=== PATIENT | female | born 1950 | race Caucasian/White ===

== ENCOUNTER 2020-08-10 06:31 | Inpatient (IN) ==
[2020-08-07 11:52] LABS: Basophils # 0.1 10*3/uL (0.0-0.2); Basophils % 0.9 % (0.0-0.8); Eosinophils # 0.2 10*3/uL (0.0-0.87); Eosinophils % 3.4 % (0.00-10.9); Hematocrit 41.7 VOL% (35.7-47.0); Hemoglobin 13.6 GM/DL (12.0-16.0); Immature Granulocytes % 0.4 %; Immature Granulocytes Absolute 0.02 #; Lymphocytes % 53.2 % (21.3-54.2); Mean Corpuscular HGB Conc 32.6 GM/DL (32-36); Mean Corpuscular Volume 90.8 FL (87-102); Mean Platelet Volume 10.3 FL (9.6-12.0); Monocytes % 10.2 % (1.7-12.7); Neutrophils % 31.9 % (38.7-73.9); Platelet Count 311 T/CUMM (130-400); Red Blood Count 4.59 MC/CUMM (3.8-5.5); Red Cell Distribution Width 12.8 % (9.3-17.3); White Blood Count 5.7 T/CUMM (4-12)
[2020-08-07 12:14] LABS: Atypical Lymphocytes Few; Eosinophils 4 % (0-10); Hypochromasia 1+; Lymphocytes 48 % (20-55); Platelet Estimate Adequate; Segmented Neutrophils 36 % (50-85); Total Cells Counted 100
[2020-08-07 12:34] LABS: Bilirubin,Total 0.5 MG/DL (0.2-1.0); Calcium 9.2 MG/DL (8.5-10.1); Osmolality,Calculated 277.4 MOS/KG (273-304); Total Protein 7.4 G/DL (6.4-8.3)
[~2020-08-10 06:31] MED LIST: cefOXitin 1,000 MG in SYRINGE 1 EACH IV ONE
[2020-08-10] MEDS ORDERED: DIAZEPAM 5 MG TABLET PO ONE (06:51)
[2020-08-10] MEDS ORDERED: FAMOTIDINE 20 MG TABLET PO ONE (06:51)
[2020-08-10] MEDS ORDERED: LACTATED RINGERS 1,000 ML IV SCH (08:00)
[2020-08-10] MEDS ORDERED: TISSUE ADHESIVE 1 EACH APPLICATOR TOP ONE (09:52)
[2020-08-10] MEDS ORDERED: BUPIVACAINE MPF 0.25% 30 ML VIAL ONE (09:52)
[2020-08-10] MEDS ORDERED: LIDOCAINE 1%/EPI INJ 20 ML VIAL ONE (09:52)
[2020-08-10] MEDS ORDERED: ACETAMINOPHEN 1,000 MG/100 ML VIAL IV ONE ×2 (10:29→13:04)
[2020-08-10] MEDS ORDERED: INDOCYANINE GREEN 25 MG VIAL IV ONE (11:21)
[2020-08-10] MEDS ORDERED: LIDOCAINE 2% 5 ML VIAL ONE (13:03)
[2020-08-10] MEDS ORDERED: fentaNYL 100 MCG/2 ML VIAL ONE (13:03)
[2020-08-10] MEDS ORDERED: propofoL 200 MG/20 ML VIAL IV ONE (13:03)
[2020-08-10] MEDS ORDERED: MIDAZOLAM 2 MG/2 ML VIAL ONE (13:03)
[2020-08-10] MEDS ORDERED: SEVOFLURANE 1 UNIT/15 MINUTE INH ONE (13:03)
[2020-08-10] MEDS ORDERED: ROCURONIUM 100 MG/10 ML VIAL IV ONE (13:04)
[2020-08-10] MEDS ORDERED: PHENYLEPHRINE 1 MG/10 ML SYRINGE IV ONE (13:04)
[2020-08-10] MEDS ORDERED: ONDANSETRON 4 MG/2 ML VIAL ONE (13:04)
[2020-08-10] MEDS ORDERED: LACTATED RINGERS 1,000 ML IV ONE (13:04)
[2020-08-10] MEDS ORDERED: HYDROmorphone 2 MG/1 ML VIAL ONE (13:29)
[2020-08-10] MEDS ORDERED: ONDANSETRON 4 MG/2 ML VIAL IV PRN (13:30)
[2020-08-10] MEDS: HYDROmorphone 2 MG/1 ML VIAL IV PRN ×4 (13:34→13:50)
[2020-08-10 13:49] LABS: Bacteria,Urine Occasional /HPF (Few); Bilirubin,Urine Negative (Negative); Blood, Urine Negative (Negative); Glucose,Urine (UA) Negative (Negative); Hyaline Casts,Urine 4 /LPF (0-3); Ketones,Urine 20 mg/dL (Negative); Mucus,Urine Few /LPF (Occasional); Nitrite,Urine Negative (Negative); Protein,Urine Negative; RBC,Urine 1 /HPF (0-4); Squamous Epithelial Cell,Urine Occasional /HPF (0-10); Urine Appearance CLEAR (Clear); Urine Color Yellow (Yellow); Urine Specific Gravity 1.012 (1.001-1.035); Urine Urobilinogen < 2.0 EU/DL (0.2-1.0); WBC,Urine 2 /HPF (0-6)
[2020-08-10] MEDS: DEXTROSE 5% LACTATED RINGERS 1,000 ML IV SCH (17:17)
[2020-08-10] MEDS: cefOXitin 2,000 MG in SYRINGE 1 EACH IV SCH (17:56)
[2020-08-11] MEDS: ONDANSETRON 4 MG/2 ML VIAL IV PRN ×5 (00:15→23:47)
[2020-08-11] MEDS: MORPHINE 4 MG/1 ML VIAL IV PRN ×4 (00:20→14:15)
[2020-08-11] MEDS: DEXTROSE 5% LACTATED RINGERS 1,000 ML IV SCH ×4 (00:43→23:45)
[2020-08-11] MEDS: cefOXitin 2,000 MG in SYRINGE 1 EACH IV SCH ×2 (00:43→06:28)
[2020-08-11 06:25] LABS: Basophils % 0.1 % (0.0-0.8); Hematocrit 35.9 VOL% (35.7-47.0); Hemoglobin 11.8 GM/DL (12.0-16.0); Immature Granulocytes % 0.5 %; Immature Granulocytes Absolute 0.07 #; Lymphocytes # 1.6 10*3/uL (1.4-4.0); Lymphocytes % 10.9 % (21.3-54.2); Mean Corpuscular HGB Conc 32.9 GM/DL (32-36); Mean Corpuscular Volume 91.6 FL (87-102); Mean Platelet Volume 9.8 FL (9.6-12.0); Monocytes % 6.9 % (1.7-12.7); Neutrophils % 81.6 % (38.7-73.9); Platelet Count 264 T/CUMM (130-400); Red Blood Count 3.92 MC/CUMM (3.8-5.5); Red Cell Distribution Width 12.7 % (9.3-17.3); White Blood Count 14.4 T/CUMM (4-12)
[2020-08-11 06:39] LABS: Calcium 8.7 MG/DL (8.5-10.1)
[2020-08-11] MEDS: PANTOPRAZOLE 40 MG TABLET PO SCH (10:01)
[2020-08-12] MEDS: MORPHINE 4 MG/1 ML VIAL IV PRN ×4 (01:35→19:33)
[2020-08-12] MEDS: ONDANSETRON 4 MG/2 ML VIAL IV PRN ×4 (06:28→20:25)
[2020-08-12] MEDS: PANTOPRAZOLE 40 MG TABLET PO SCH (09:00)
[2020-08-12] MEDS: DEXTROSE 5% LACTATED RINGERS 1,000 ML IV SCH ×2 (13:19→22:20)
[2020-08-12 16:18] LABS: Basophils % 0.2 % (0.0-0.8); Eosinophils % 0.3 % (0.00-10.9); Hemoglobin 13.1 GM/DL (12.0-16.0); Immature Granulocytes % 0.2 %; Immature Granulocytes Absolute 0.02 #; Lymphocytes # 2.1 10*3/uL (1.4-4.0); Mean Corpuscular Volume 93.6 FL (87-102); Mean Platelet Volume 9.6 FL (9.6-12.0); Monocytes % 6.8 % (1.7-12.7); Neutrophils % 72.5 % (38.7-73.9); Platelet Count 319 T/CUMM (130-400); Red Blood Count 4.38 MC/CUMM (3.8-5.5); Red Cell Distribution Width 13.1 % (9.3-17.3); White Blood Count 10.4 T/CUMM (4-12)
[2020-08-12 16:36] LABS: Osmolality,Calculated 268.2 MOS/KG (273-304)
[2020-08-13 00:14] LABS: Bilirubin,Urine Negative (Negative); Blood, Urine Negative (Negative); Glucose,Urine (UA) 150 mg/dL (Negative); Ketones,Urine Negative (Negative); Mucus,Urine Occasional /LPF (Occasional); Nitrite,Urine Negative (Negative); Protein,Urine 30 MG/DL; RBC,Urine 2 /HPF (0-4); Squamous Epithelial Cell,Urine Occasional /HPF (0-10); Urine Appearance CLEAR (Clear); Urine Color Yellow (Yellow); Urine Specific Gravity 1.015 (1.001-1.035); WBC,Urine 1 /HPF (0-6)
[2020-08-13] MEDS: ONDANSETRON 4 MG/2 ML VIAL IV PRN ×5 (00:34→20:59)
[2020-08-13] MEDS: MORPHINE 4 MG/1 ML VIAL IV PRN ×4 (00:39→21:00)
[2020-08-13 05:27] LABS: Basophils % 0.2 % (0.0-0.8); Eosinophils # 0.1 10*3/uL (0.0-0.87); Eosinophils % 1.7 % (0.00-10.9); Hematocrit 36.5 VOL% (35.7-47.0); Hemoglobin 11.7 GM/DL (12.0-16.0); Immature Granulocytes % 0.2 %; Immature Granulocytes Absolute 0.02 #; Lymphocytes # 2.4 10*3/uL (1.4-4.0); Lymphocytes % 29.6 % (21.3-54.2); Mean Corpuscular HGB Conc 32.1 GM/DL (32-36); Mean Corpuscular Volume 92.2 FL (87-102); Monocytes % 10.1 % (1.7-12.7); Neutrophils % 58.2 % (38.7-73.9); Platelet Count 290 T/CUMM (130-400); Red Blood Count 3.96 MC/CUMM (3.8-5.5); White Blood Count 8.2 T/CUMM (4-12)
[2020-08-13] MEDS: DEXTROSE 5% LACTATED RINGERS 1,000 ML IV SCH ×5 (05:54→22:24)
[2020-08-13 06:04] LABS: Calcium 8.7 MG/DL (8.5-10.1)
[2020-08-13] MEDS: PANTOPRAZOLE 40 MG TABLET PO SCH (08:43)
[2020-08-14] MEDS: ONDANSETRON 4 MG/2 ML VIAL IV PRN ×3 (06:32→21:20)
[2020-08-14] MEDS: DEXTROSE 5% LACTATED RINGERS 1,000 ML IV SCH ×3 (06:40→23:25)
[2020-08-14] MEDS: MORPHINE 4 MG/1 ML VIAL IV PRN (06:40)
[2020-08-14 08:03] LABS: Basophils % 0.3 % (0.0-0.8); Eosinophils # 0.1 10*3/uL (0.0-0.87); Eosinophils % 2.2 % (0.00-10.9); Hematocrit 33.3 VOL% (35.7-47.0); Hemoglobin 10.8 GM/DL (12.0-16.0); Immature Granulocytes % 0.2 %; Immature Granulocytes Absolute 0.01 #; Lymphocytes # 1.6 10*3/uL (1.4-4.0); Mean Corpuscular HGB Conc 32.4 GM/DL (32-36); Mean Corpuscular Volume 91.5 FL (87-102); Mean Platelet Volume 9.6 FL (9.6-12.0); Monocytes % 11.2 % (1.7-12.7); Neutrophils % 60.1 % (38.7-73.9); Platelet Count 282 T/CUMM (130-400); Red Blood Count 3.64 MC/CUMM (3.8-5.5); Red Cell Distribution Width 12.7 % (9.3-17.3)
[2020-08-14 08:29] LABS: Calcium 8.6 MG/DL (8.5-10.1); Osmolality,Calculated 271.8 MOS/KG (273-304)
[2020-08-14] MEDS: PANTOPRAZOLE 40 MG TABLET PO SCH (09:57)
[2020-08-15] MEDS: DEXTROSE 5% LACTATED RINGERS 1,000 ML IV SCH ×3 (07:48→16:35)
[2020-08-15] MEDS: ONDANSETRON 4 MG/2 ML VIAL IV PRN ×2 (07:55→17:03)
[2020-08-15] MEDS: PANTOPRAZOLE 40 MG TABLET PO SCH (08:57)
[2020-08-15] MEDS: ACETAMINOPHEN 325 MG TABLET PO PRN (16:53)
[2020-08-16] MEDS: ACETAMINOPHEN 325 MG TABLET PO PRN ×2 (00:12→10:55)
[2020-08-16] MEDS: DEXTROSE 5% LACTATED RINGERS 1,000 ML IV SCH ×3 (03:15→11:41)
[2020-08-16] MEDS: FLUTICASONE 50 MCG NASAL SPRAY 16 GM BOTTLE BOTH NARES SCH ×2 (09:32→21:15)
[2020-08-16] MEDS: PANTOPRAZOLE 40 MG TABLET PO SCH (09:33)
[2020-08-16] MEDS: ONDANSETRON 4 MG/2 ML VIAL IV PRN (10:55)
[2020-08-16] MEDS: ONDANSETRON 4 MG TABLET PO PRN ×2 (13:22→19:13)
[2020-08-17] MEDS: FLUTICASONE 50 MCG NASAL SPRAY 16 GM BOTTLE BOTH NARES SCH (09:08)
[2020-08-17] MEDS: PANTOPRAZOLE 40 MG TABLET PO SCH (09:09)
[2020-08-17 11:30] VITALS: BP 130/64
== END 2020-08-17 15:25 | disposition home or self-care (01) | DRG 329 ==
LOC: N.OR 06:31 → N.3E 06:32 → N.SDSINP 06:32
PROVIDERS: ADMIT Surgery; ATTEND Surgery